=== PATIENT | female | born 1950 | race Caucasian/White ===

== ENCOUNTER → 2016-10-02 | Outpatient (CLI) | payer MEDICARE, BC ==
[~2016-10-02] MED LIST: ASPIRIN 32325 MG/TAB PO; COREG 25MG25 MG/TAB PO; ENALAPRIL20 MG PO; FLONASE0.05 MG/AC NS; LASIX20 MG PO; POTASS CHL20 MEQ/15 PO; PREMARIN 0.60.625 MG PO; TRIAMTERENE/HCT1 CA1 PO; TRICOR145 MG PO
== END ==
LOC: COL.RAD 12:30
DX: M51.26 Other intervertebral disc displacement, lumbar region (principal); M71.38 Other bursal cyst, other site

== ENCOUNTER → 2017-01-26 | Outpatient (CLI) | payer MEDICARE, BC | LOC: COL.RAD 11:02 | DX: M18.12 Unilateral primary osteoarthritis of first carpometacarpal joint, left hand (principal) ==

== ENCOUNTER → 2017-03-02 | Outpatient (CLI) | payer MEDICARE, BC | LOC: MC.RAD 11:27 | DX: Z12.31 Encounter for screening mammogram for malignant neoplasm of breast (principal) ==

== ENCOUNTER → 2018-04-04 | Outpatient (CLI) | payer MEDICARE, BC | LOC: MC.RAD 10:20 | DX: Z12.31 Encounter for screening mammogram for malignant neoplasm of breast (principal) ==

== ENCOUNTER → 2018-08-01 | Outpatient (CLI) | payer MEDICARE, BC | LOC: COL.RAD 10:19 | DX: M16.11 Unilateral primary osteoarthritis, right hip (principal) | CPT/HCPCS: J3301; Q9967 ==

== ENCOUNTER 2018-08-13 11:22 | Emergency (ER) | payer MEDICARE, BC ==
[~2018-08-13] VITALS: Ht 167.6 cm; Wt 79.5 kg
[2018-08-13 11:25] VITALS: TEMP 98.3
[2018-08-13 11:37] LABS: COLLECTION METHOD CLEAN CATCH
[2018-08-13 11:42] LABS: PH 7 (5-8); SQUAMOUS EPITHELIAL None Seen /hpf; URINE APPEARANCE Clear; URINE BACTERIA None Seen /hpf; URINE BILIRUBIN Negative (NEGATIVE); URINE BLOOD Negative (NEGATIVE); URINE COLOR Straw; URINE GLUCOSE Negative (NEGATIVE); URINE KETONE Negative (NEGATIVE); URINE LEUKOCYTE ESTERASE Negative (NEGATIVE); URINE NITRATE Negative (NEGATIVE); URINE PROTEIN(semi-quant) Negative (NEGATIVE); URINE RBC None Seen /hpf; URINE UROBILINOGEN Negative (NEGATIVE)
[2018-08-13] MEDS ORDERED: ALDACTONE 25MG25 M1 PO (12:02)
[2018-08-13] MEDS ORDERED: ALAVERT10 M1 PO (12:03)
[2018-08-13 12:19] LABS: BASO # 0.1 (0.0-0.2); BASO % 0.6 % (0.0-2.0); EOS # 0.1 (0.0-0.7); EOS % 1.4 % (0-4.0); GRAN # 5.4 (1.4-6.5); GRAN % 67.3 % (42.2-75.2); HEMATOCRIT 43.3 % (37.0-47.0); HEMOGLOBIN 13.9 g/dl (12.5-16.0); LYMPH # 1.9 (1.2-3.4); LYMPH % 23.5 % (20.0-51.0); MEAN CELL VOLUME 91 fl (80.0-100.0); MEAN CORPUSCULAR HEMOGLOBIN 29 pg (27.0-31.0); MEAN CORPUSCULAR HGB CONC 32 g/dl (33.0-37.0); MEAN PLATELET VOLUME 9.5 fl (7.4-10.4); MONO # 0.5 (0.1-0.6); MONO % 6.5 % (1.7-9.3); PLATELET COUNT 268 K/mm3 (130-400); RED BLOOD COUNT 4.76 M/mm3 (4.10-5.30); REDCELL DISTRIBUTION WIDTH-CV 12.8 % (11.5-14.5)
[2018-08-13 12:32] LABS: ALANINE AMINOTRANSFERASE 24 U/L (9-52); ALKALINE PHOSPHATASE 40 U/L (50-136); ANION GAP 7 mmol/L (7-16); AST,SGOT 21 U/L (15-37); BILIRUBIN,TOTAL 0.4 mg/dL (0.0-1.0); BLOOD UREA NITROGEN 17 mg/dL (7-17); CALCIUM 10.7 mg/dL (8.4-10.2); CARBON DIOXIDE 28 mmol/L (22-30); CHLORIDE 103 mmol/L (98-107); CREATININE, serum 0.78 mg/dL (0.52-1.25); GLUCOSE 93 mg/dL (74-106); POTASSIUM 4.4 mmol/L (3.4-5.0); SODIUM 138 mmol/L (137-145); TOTAL PROTEIN 6.8 gm/dL (6.4-8.2)
[2018-08-13 12:33] LABS: C-REACTIVE PROTEIN < 0.5 mg/dL (0.0-0.9)
[2018-08-13 12:43] LABS: TROPONIN-I < 0.012 ng/mL (0.000-0.034)
[2018-08-13] MEDS ORDERED: ZITHROMAX 250M250 MG PO (15:30)
[2018-08-13] MEDS ORDERED: PREDNISONE20 MG PO (15:30)
[2018-08-13 15:41] VITALS: BP 139/77; PULSE 91
== END 2018-08-13 15:47 | disposition home or self-care (01) ==
LOC: COL.ER 11:22
PROVIDERS: Physician Assistant
DX: R06.00 Dyspnea, unspecified (principal); M54.5 Low back pain; I10 Essential (primary) hypertension; E78.5 Hyperlipidemia, unspecified; Z90.49 Acquired absence of other specified parts of digestive tract; Z90.710 Acquired absence of both cervix and uterus; Z87.891 Personal history of nicotine dependence; Z88.0 Allergy status to penicillin; Z88.2 Allergy status to sulfonamides; Z79.51 Long term (current) use of inhaled steroids; Z79.82 Long term (current) use of aspirin
CPT/HCPCS: J7512; Q9967

== ENCOUNTER → 2019-04-21 | Outpatient (CLI) | payer MEDICARE, BC ==
[~2019-04-21] MED LIST changes: +ALAVERT10 M1 PO; +ALDACTONE 25MG25 M1 PO; +PREDNISONE20 MG PO; +ZITHROMAX 250M250 MG PO
== END ==
LOC: COL.RAD 04-18 13:00
DX: M16.11 Unilateral primary osteoarthritis, right hip (principal)
CPT/HCPCS: J3301; Q9967

== ENCOUNTER → 2019-05-06 | Outpatient (CLI) | payer MEDICARE, BC | LOC: MC.RAD 12:56 | DX: Z12.31 Encounter for screening mammogram for malignant neoplasm of breast (principal) ==

== ENCOUNTER → 2020-08-10 | Outpatient (CLI) | payer MEDICARE, BC | LOC: MC.RAD 11:15 | DX: Z12.31 Encounter for screening mammogram for malignant neoplasm of breast (principal) ==

== ENCOUNTER 2020-10-19 10:30 | Emergency (ER) | payer MEDICARE, BC ==
[~2020-10-19] VITALS: Ht 165.1 cm; Wt 80.9 kg
[2020-10-19 10:37] VITALS: TEMP 98.8
[2020-10-19 10:56] LABS: BASO # 0.1 (0.0-0.2); EOS # 0.2 (0.0-0.7); EOS % 2.6 % (0-4.0); GRAN # 4.5 (1.4-6.5); GRAN % 65.5 % (42.2-75.2); HEMATOCRIT 45.7 % (37.0-47.0); HEMOGLOBIN 14.4 g/dl (12.5-16.0); LYMPH # 1.6 (1.2-3.4); LYMPH % 23.9 % (20.0-51.0); MEAN CELL VOLUME 91 fl (80.0-100.0); MEAN CORPUSCULAR HEMOGLOBIN 29 pg (27.0-31.0); MEAN CORPUSCULAR HGB CONC 32 g/dl (33.0-37.0); MEAN PLATELET VOLUME 10.4 fl (7.4-10.4); MONO # 0.5 (0.1-0.6); MONO % 6.9 % (1.7-9.3); PLATELET COUNT 243 K/mm3 (130-400); RED BLOOD COUNT 5.04 M/mm3 (4.10-5.30); REDCELL DISTRIBUTION WIDTH-CV 13.5 % (11.5-14.5)
[2020-10-19 11:05] LABS: INR 1.1 (0.8-3.0); PROTHROMBIN TIME 11.9 SECONDS (9.7-12.8)
[2020-10-19 11:08] LABS: PARTIAL THROMBOPLASTIN TIME 34.8 SECONDS (26.0-37.0)
[2020-10-19 11:30] LABS: ALANINE AMINOTRANSFERASE 21 U/L (4-34); ALBUMIN 4.3 gm/dL (3.5-5.0); ALKALINE PHOSPHATASE 39 U/L (50-136); ANION GAP 7 mmol/L (7-16); AST,SGOT 29 U/L (15-37); BILIRUBIN,TOTAL 0.5 mg/dL (0.0-1.0); BLOOD UREA NITROGEN 16 mg/dL (7-17); CALCIUM 10.3 mg/dL (8.4-10.2); CARBON DIOXIDE 26 mmol/L (22-30); CHLORIDE 106 mmol/L (98-107); CREATININE, serum 0.78 (0.52-1.25); GLUCOSE 106 mg/dL (74-106); POTASSIUM 4.3 mmol/L (3.4-5.0); SODIUM 139 mmol/L (137-145); TOTAL PROTEIN 7.6 gm/dL (6.4-8.2)
[2020-10-19 11:46] LABS: TROPONIN-I < 0.012 ng/mL (0.000-0.035)
[2020-10-19 12:23] LABS: COLLECTION METHOD CLEAN CATCH
[2020-10-19 12:28] LABS: PH 8 (5-8); SQUAMOUS EPITHELIAL None Seen /hpf; URINE APPEARANCE Clear; URINE BACTERIA None Seen /hpf; URINE BILIRUBIN Negative (NEGATIVE); URINE BLOOD Negative (NEGATIVE); URINE COLOR Yellow; URINE GLUCOSE Negative (NEGATIVE); URINE KETONE Negative (NEGATIVE); URINE LEUKOCYTE ESTERASE Negative (NEGATIVE); URINE NITRATE Negative (NEGATIVE); URINE PROTEIN(semi-quant) Negative (NEGATIVE); URINE RBC 0-2 /hpf; URINE UROBILINOGEN Negative (NEGATIVE)
[2020-10-19 13:35] VITALS: BP 129/72; PULSE 65
[2020-10-19] MEDS ORDERED: CYMBALTA 20MG20 MG PO (15:07)
== END 2020-10-19 13:35 | disposition home or self-care (01) ==
LOC: COL.ER 10:30
PROVIDERS: Family Medicine
DX: R07.89 Other chest pain (principal); J44.9 Chronic obstructive pulmonary disease, unspecified; Z88.0 Allergy status to penicillin; Z88.2 Allergy status to sulfonamides; Z88.1 Allergy status to other antibiotic agents; Z87.891 Personal history of nicotine dependence; Z79.82 Long term (current) use of aspirin

== ENCOUNTER → 2020-10-21 | Outpatient (CLI) | payer MEDICARE, BC ==
[~2020-10-21] VITALS: Ht 165.1 cm; Wt 81.6 kg
[~2020-10-21] MED LIST changes: +CYMBALTA 20MG20 MG PO
[2020-10-21 08:05] VITALS: BP 163/92; PULSE 79
[2020-10-21 09:08] VITALS: BP 162/83; PULSE 72
[2020-10-21 09:13] VITALS: BP 154/84; PULSE 95
[2020-10-21 09:14] VITALS: BP 145/74; PULSE 96
[2020-10-21 09:15] VITALS: BP 140/72; PULSE 92
[2020-10-21 09:16] VITALS: BP 124/72; PULSE 89
== END ==
LOC: COL.CARD 07:44
DX: R07.9 Chest pain, unspecified (principal)
CPT/HCPCS: A9500; J2785

== ENCOUNTER 2021-05-20 11:15 | Outpatient (RCR) | payer MEDICARE, BC | END 2021-05-23 13:33 | disposition home or self-care (01) | LOC: PT.GENESIS 11:15 | DX: M17.0 Bilateral primary osteoarthritis of knee (principal); M70.61 Trochanteric bursitis, right hip; M54.2 Cervicalgia ==

== ENCOUNTER 2022-04-01 17:26 | Inpatient (IN) | payer MEDICARE, BC ==
[~2022-04-01] VITALS: Ht 162.6 cm; Wt 91.2 kg
[2022-04-01 18:10] LABS: BASO # 0.1 K/mm3 (0.0-0.2); BASO % 0.6 % (0.0-2.0); EOS # 0.4 K/mm3 (0.0-0.7); EOS % 3.6 % (0.0-4.0); GRAN # 7.6 K/mm3 (1.4-6.5); GRAN % 73.5 % (42.2-75.2); HEMATOCRIT 43.8 % (37.0-47.0); HEMOGLOBIN 14.1 g/dl (12.5-16.0); LYMPH # 1.5 K/mm3 (1.2-3.4); LYMPH % 14.5 % (20.0-51.0); MEAN CELL VOLUME 90 fl (80.0-100.0); MEAN CORPUSCULAR HEMOGLOBIN 29 pg (27-31); MEAN CORPUSCULAR HGB CONC 32 g/dl (33.0-37.0); MEAN PLATELET VOLUME 9.5 fl (7.4-10.4); MONO # 0.8 K/mm3 (0.1-0.6); MONO % 7.5 % (1.7-9.3); PLATELET COUNT 302 K/mm3 (130-400); RED BLOOD COUNT 4.89 M/mm3 (4.10-5.30); REDCELL DISTRIBUTION WIDTH-CV 13.1 % (11.5-14.5)
[2022-04-01 18:25] LABS: BILIRUBIN,TOTAL 0.6 mg/dL (0.2-1.2); CREATININE, serum 0.77 mg/dL (0.57-1.11); POTASSIUM 4.3 mmol/L (3.5-4.5); TOTAL PROTEIN 7.3 gm/dL (6.2-8.1)
[2022-04-01 18:30] LABS: TROPONIN-I 0.011 ng/mL (0.00-0.033)
[2022-04-01 18:42] LABS: COLLECTION METHOD CLEAN CATCH
[2022-04-01 18:49] LABS: URINE APPEARANCE Clear (CLEAR/HAZY); URINE COLOR Yellow (YELLOW)
[2022-04-01 18:50] LABS: PH 6.5 (5.0-8.5); URINE BLOOD Negative (NEGATIVE); URINE GLUCOSE Negative (NEGATIVE); URINE KETONE Negative (NEGATIVE); URINE NITRATE Negative (NEGATIVE); URINE PROTEIN(semi-quant) 1+ (NEGATIVE); URINE UROBILINOGEN 0.2 E.U/dL (0.2-1.0)
[2022-04-01 18:51] LABS: SQUAMOUS EPITHELIAL 0-2 /hpf (0-10); URINE BACTERIA None Seen /hpf (NONE SEEN); URINE RBC None Seen /hpf (0-2)
[2022-04-01 21:24] VITALS: BP 157/85; PULSE 83; TEMP 98.3
[2022-04-01] MEDS ORDERED: VASOTEC20 MG PO (22:01)
[2022-04-01] MEDS ORDERED: HCTZ 25MG TAB25 MG PO (22:01)
[2022-04-01] MEDS ORDERED: CYMBALTA 30MG30 MG PO (22:02)
[2022-04-01] MEDS ORDERED: KLOR-CON SPRIN10 MEQ PO (22:02)
[2022-04-01] MEDS ORDERED: VENTOLIN0.09 MG IH (22:03)
[2022-04-01] MEDS ORDERED: LOFIBRA160 MG PO (22:03)
[2022-04-01] MEDS ORDERED: FLONASEALLERGY NS (22:04)
[2022-04-01] MEDS ORDERED: CENTRUM SILVER1 TAB PO (22:04)
[2022-04-01] MEDS ORDERED: LASIX 20MG TABL20 MG PO (22:04)
[2022-04-02 00:07] VITALS: BP 126/72; PULSE 91; TEMP 97.9
[2022-04-02 04:11] VITALS: BP 129/64; PULSE 89; TEMP 97.5
--- NOTE | 2022-04-02 06:05 | NUR ---
PATIENT ARRIVED TO FLOOR VIA CART ACCOMPANIED BY DAUGHTER. PATIENT TITRATED TO 4.5 LITERS OF OXYGEN PER NASAL CANNULA. PATIENT HAD NO COMPLAINTS OF PAIN AND RECEIVED NO PRNS. PATIENT ATE BOXED LUNCH BEFORE BED AND UP AMBULATING.
[2022-04-02 07:22] VITALS: BP 135/81; PULSE 85; TEMP 97.9
--- NOTE | 2022-04-02 07:50 | NUR ---
Pt assessment complete. Pt is sitting up on the side of the bed upon entry, she is A/O x4. Her breathing currently is even and unlabored on 5L O2 via NC. She reports she has not been up ambulating so would not consider herself more short of breath at this time. States she has no more pain than usual. Denies N/V. POC discussed with patient. Denies further needs, call light within reach.
[2022-04-02 11:54] VITALS: BP 150/71; PULSE 71; TEMP 97.7
[2022-04-02 15:36] VITALS: BP 136/63; PULSE 78; TEMP 97.4
[2022-04-02 20:00] VITALS: BP 136/69; PULSE 80; TEMP 98
[2022-04-03] VITALS (7 sets, daily range): BP systolic 120–144; BP diastolic 61–74; PULSE 70–84; TEMP 97.7–98.7
--- NOTE | 2022-04-03 01:45 | NUR ---
ASSESSMENT COMPLETE FOR TECHNOLOGY COORDINATOR. PT RESTING IN BED WATCHING TV. PT DENIED GENERAL PAIN, CHEST PAIN, PALPITATIONS, SOB, N,V,D OR DIZZINESS. PT HAD A PRETTY UNEVENTFUL NIGHT UP TO THIS POINT. CARE FOR PT HAS NOW BEEN TRANSFERRED TO [facility]
[2022-04-03 06:25] LABS: HEMATOCRIT 40.2 % (37.0-47.0); HEMOGLOBIN 12.9 g/dl (12.5-16.0); MEAN CELL VOLUME 89 fl (80.0-100.0); MEAN CORPUSCULAR HEMOGLOBIN 29 pg (27-31); MEAN CORPUSCULAR HGB CONC 32 g/dl (33.0-37.0); MEAN PLATELET VOLUME 9.9 fl (7.4-10.4); PLATELET COUNT 279 K/mm3 (130-400)
--- NOTE | 2022-04-03 06:30 | NUR ---
pt weaned to 4.5L O2, up ad guera in room, saline lock patent/secure in RAC.
[2022-04-03 06:52] LABS: CALCIUM 10.2 mg/dL (8.4-10.2); CREATININE, serum 0.71 mg/dL (0.57-1.11); MAGNESIUM 1.6 mg/dL (1.6-2.6); POTASSIUM 4.5 mmol/L (3.5-4.5)
[2022-04-03 07:39] LABS: BAND 6 % (0-10); LYMPHOCYTE 10 % (20.0-51.0); NEUTROPHILS 82 % (42.0-75.2)
[2022-04-03 07:41] LABS: PLATELET ESTIMATE NORMAL (NORMAL)
--- NOTE | 2022-04-03 11:37 | NUR ---
Manager Branch met with patient to discuss discharge planning. Patient lives in [place] with her daughter, Ladi (ph#[phone]) and son in law, Denny. Patient sees Dr. Bradley for primary care and obtains medications from [facility] with no difficulties. Patient wears oxygen at night from [facility] and uses no other DME. Patient is normally independent with ADLS and RN reported patient has been independent in the room. Patient reports her daughter, Ladi is her DPOA-HC. Patient plans to return home at time of discharge. Discharge Plan: Home
--- NOTE | 2022-04-03 13:20 | NUR ---
O2 decreased to 3.5L/NC at this time.
--- NOTE | 2022-04-03 13:24 | NUR ---
Assessment complete. A&Ox4. Denies pain or nausea. Short of breath with activity. O2@4L/NC. All lung combs diminished. Tolerating PO. Has a dry cough. VS remain stable. Plan of care discussed for this shift to include meds, VS, O2 and calling for questions/concerns. Verbalizes understanding. Call light in reach. Will monitor.
--- NOTE | 2022-04-03 15:20 | NUR ---
Natalie: Taoism Situation: Missile Pad Mechanic went by room on rounds Background: Pt was resting and content Assessment: no needs right now, pt appreciated the visit Recommendation: nutritional assistant will follow up as needed
--- NOTE | 2022-04-03 18:48 | NUR ---
Patient had no acute changes this shift. Does not complain of pain. VSS. Currently trying to ween patient down on O2. on 2L. Bedside shift report given.
--- NOTE | 2022-04-03 20:26 | NUR ---
Tx given via mouthpiece, tolerated well. RN at bedside. O2 NC on 2L before and after tx.
--- NOTE | 2022-04-03 20:30 | NUR ---
Initial shift assessment done- o2 sats 93% on the 2L/nc, Up in room , steady on feet, VSS, no requests, has dry cough at times- getting cough medicine every 6 hours . Lung sounds decreased throughout.
--- NOTE | 2022-04-04 02:05 | NUR ---
Tx given via mouthpiece, tolerated well.
[2022-04-04 03:48] VITALS: BP 126/66; PULSE 75; TEMP 98
--- NOTE | 2022-04-04 05:49 | NUR ---
Quiet night, VSS, o2 was increased by respiratory therapy during the night to 3L/nc due to o2 sats 88-89%, now sats 93%. Up to bathroom with standby assist- steady on feet.
[2022-04-04 06:20] LABS: BASO % 0.2 % (0.0-2.0); EOS % 0.3 % (0.0-4.0); GRAN # 7.7 K/mm3 (1.4-6.5); GRAN % 75.4 % (42.2-75.2); HEMATOCRIT 40.9 % (37.0-47.0); HEMOGLOBIN 13.1 g/dl (12.5-16.0); LYMPH # 1.5 K/mm3 (1.2-3.4); MEAN CELL VOLUME 92 fl (80.0-100.0); MEAN CORPUSCULAR HEMOGLOBIN 29 pg (27-31); MEAN CORPUSCULAR HGB CONC 32 g/dl (33.0-37.0); MEAN PLATELET VOLUME 10.1 fl (7.4-10.4); MONO # 0.9 K/mm3 (0.1-0.6); MONO % 8.6 % (1.7-9.3); PLATELET COUNT 276 K/mm3 (130-400); RED BLOOD COUNT 4.47 M/mm3 (4.10-5.30); REDCELL DISTRIBUTION WIDTH-CV 13.2 % (11.5-14.5)
[2022-04-04 06:51] LABS: CALCIUM 9.8 mg/dL (8.4-10.2); CREATININE, serum 0.7 mg/dL (0.57-1.11); POTASSIUM 4.2 mmol/L (3.5-4.5)
[2022-04-04] MEDS ORDERED: CEFTIN500 MG PO (08:07)
[2022-04-04 08:10] VITALS: BP 146/80; PULSE 71; TEMP 97.8
[2022-04-04] MEDS ORDERED: SPIRIVA RE2.5 MCG/Ac IH (09:19)
[2022-04-04] MEDS ORDERED: RT ADVAIR 228 DISKUS IH (09:19)
[2022-04-04] MEDS ORDERED: PREDNISONE10 MG PO (09:24)
[2022-04-04] MEDS ORDERED: OXYGEN (10:48)
--- NOTE | 2022-04-04 11:45 | NUR ---
SW contacted by SONAM Cosme that the patient is going to need 3L of continuous oxygen. Phone call made to the patient's established oxygen provider, [facility], and was notified that the patient is already established for 2L of NC, continuous and that she has both a home concentrator as well as a portable. Verified that the patient will not need to have any additional equipment with the increased liter flow. Per agency, she will not. Patient's clinical information from this visit documenting the increase faxed to [facility]. Patient's RN notified.
--- NOTE | 2022-04-04 11:57 | NUR ---
PAtient received discharge instructions, follow-up appointments, and updated medication orders. Patient acknowledged understanding of information. Daughter left with patient via wheelchair with the POLITICAL REPORTER. No issues with discharge.
== END 2022-04-04 11:57 | disposition home or self-care (01) | DRG 189 ==
LOC: COL.ER 17:26 → MEDICAL 18:45
PROVIDERS: Physician Assistant; Student in an Organized Health Care Education/Training Program; ADMIT Internal Medicine
DX: J96.01 Acute respiratory failure with hypoxia (principal); I10 Essential (primary) hypertension; E78.5 Hyperlipidemia, unspecified; K21.9 Gastro-esophageal reflux disease without esophagitis; E83.52 Hypercalcemia; M79.7 Fibromyalgia; M81.0 Age-related osteoporosis without current pathological fracture; R59.1 Generalized enlarged lymph nodes; Z20.822 Contact with and (suspected) exposure to COVID-19; N28.89 Other specified disorders of kidney and ureter; J43.9 Emphysema, unspecified; Z90.49 Acquired absence of other specified parts of digestive tract; Z90.710 Acquired absence of both cervix and uterus; Z99.81 Dependence on supplemental oxygen; Z90.89 Acquired absence of other organs; Z87.891 Personal history of nicotine dependence; Z88.1 Allergy status to other antibiotic agents; Z88.0 Allergy status to penicillin; Z88.2 Allergy status to sulfonamides
CPT/HCPCS: J0456; J0696; J1100; J1650; J2920; J7030; J7050; J7512; Q9967

== ENCOUNTER → 2024-04-08 | Outpatient (CLI) | payer MEDICARE, BC ==
[~2024-04-08] MED LIST changes: +Albuterol 0.083% Neb Soln 2.5 MG/3 ML UD IH ONE; +CEFTIN500 MG PO; +CENTRUM SILVER1 TAB PO; +CLEOCIN HCL300 MG PO; +CYMBALTA 30MG30 MG PO; +FLONASEALLERGY NS; +HCTZ 25MG TAB25 MG PO; +KLOR-CON SPRIN10 MEQ PO; +LASIX 20MG TABL20 MG PO; +LOFIBRA160 MG PO; +MAGNESIUM200 MG PO; +NEXIUM 20MG20 MG; +NEXIUM 20MG20 MG PO; +NYSTATIN OR100 MU/ML PO; +OXYGEN; +PREDNISONE10 MG PO; +RT ADVAIR 228 DISKUS IH; +SPIRIVA RE2.5 MCG/Ac IH; +TRELEGY ELLIPT1 EACH IH; +TYLENOL 8 HR PO; +VASOTEC20 MG PO; +VENTOLIN0.09 MG IH
== END ==
LOC: COL.VAS 09:09
DX: I07.1 Rheumatic tricuspid insufficiency (principal); J44.9 Chronic obstructive pulmonary disease, unspecified

== ENCOUNTER 2024-05-15 15:01 | Emergency (ER) | payer MEDICARE, BC ==
[~2024-05-15] VITALS: Ht 165.1 cm; Wt 88.6 kg
[~2024-05-15 15:01] MED LIST changes: -Albuterol 0.083% Neb Soln 2.5 MG/3 ML UD IH ONE
[2024-05-15 15:09] VITALS: TEMP 98.6
[2024-05-15 16:00] LABS: BASO # 0.1 K/mm3 (0.0-0.2); BASO % 0.9 % (0.0-2.0); EOS # 0.2 K/mm3 (0.0-0.7); EOS % 2.7 % (0.0-4.0); GRAN # 4.5 K/mm3 (1.4-6.5); GRAN % 67.6 % (42.2-75.2); HEMATOCRIT 40.2 % (37.0-47.0); HEMOGLOBIN 12.9 g/dl (12.5-16.0); LYMPH # 1.5 K/mm3 (1.2-3.4); MEAN CELL VOLUME 87 fl (80.0-100.0); MEAN CORPUSCULAR HEMOGLOBIN 28 pg (27-31); MEAN CORPUSCULAR HGB CONC 32 g/dl (33.0-37.0); MEAN PLATELET VOLUME 10.4 fl (7.4-10.4); MONO # 0.4 K/mm3 (0.1-0.6); MONO % 6.5 % (1.7-9.3); PLATELET COUNT 233 K/mm3 (130-400); RED BLOOD COUNT 4.61 M/mm3 (4.10-5.30); REDCELL DISTRIBUTION WIDTH-CV 13.3 % (11.5-14.5)
[2024-05-15 16:37] VITALS: BP 146/77; PULSE 73
== END 2024-05-15 16:37 | disposition home or self-care (01) ==
LOC: COL.ER 15:01
PROVIDERS: Family Medicine
DX: R04.0 Epistaxis (principal); Z87.891 Personal history of nicotine dependence